=== PATIENT | male | born 1955 | race Two or more races ===

== ENCOUNTER 2023-09-23 12:10 | Inpatient (IN) | payer OTHER, MEDICAID ==
[~2023-09-23] VITALS: Ht 158 cm; Wt 58.1 kg
[2023-09-23 13:45] LABS: Basophils # (auto) 0 10 ^3/uL (0-0.2); Eosinophils # (auto) 0 10 ^3/uL (0-0.8); Eosinophils % (auto) 0.1 % (0.0-7.0); Monocytes # (auto) 0.5 10 ^3/uL (0-1.3)
[2023-09-23 13:49] LABS: Basophils % (auto) 0.2 % (0.0-2.0); Hematocrit 39.3 % (41.0-53.0); Lymphocytes # (auto) 1.2 10 ^3/uL (0.4-5.4); Mean Corpuscular Hemoglobin 32.3 pg (28.0-32.0); Mean Corpuscular Volume 97.7 fL (80.0-100.0); Monocytes % (auto) 5.1 % (0.0-12.0); Neutrophils # (auto) 7.7 10 ^3/uL (1.6-8.6); Neutrophils % (auto) 81.6 % (37.0-80.0); Red Blood Cells 4.02 10^6/uL (4.5-5.90); White Blood Cell 9.4 10^3/uL (4.4-10.8)
[2023-09-23 13:56] LABS: Chloride 94 mmol/L (98-107); Potassium 5.3 mmol/L (3.5-5.1); Sodium 124 mmol/L (136-145)
[2023-09-23 13:57] LABS: Anion Gap 7 (5-15); Carbon Dioxide 23 mmol/L (20-30)
[2023-09-23 14:02] LABS: BUN/Creatinine Ratio 13.3 (10.0-20.0); Blood Urea Nitrogen 21 mg/dL (9-23)
[2023-09-23 14:12] LABS: Glucose 744 mg/dL (74-106)
[2023-09-23 14:27] LABS: Urine Epithelial Cast None Seen /hpf (<5)
[2023-09-23 14:50] LABS: Urine Bacteria NONE SEEN /hpf (None Seen); Urine Blood TRACE /uL (Negative); Urine Clarity Clear (Clear); Urine Color Colorless (Yellow); Urine Protein, UAD 1+ (Negative); Urine Specific Gravity 1.024 (1.001-1.035); Urine Urobilinogen Normal (Negative); Urine WBC 1 /hpf (0 - 3)
[2023-09-23] MEDS ORDERED: SODIUM CHLORIDE 0.9% 1,000 ML IV ONE ×2 (15:00)
[2023-09-23] MEDS ORDERED: InsuLIN REG 1unit/0.01ml Soln (100units/ml) IV ONE (15:00)
[2023-09-23 15:20] LABS: Lactic Acid w/Reflex 2.8 mmol/L (0.4-2.0)
[2023-09-23] MEDS ORDERED: DOCUSATE SOD 100 MG CAP PO PRN (18:00)
[2023-09-23] MEDS ORDERED: DEXTROSE (50%) 50ML SYRG IV PRN (18:00)
[2023-09-23] MEDS ORDERED: ONDANSETRON HCL 4 MG/2 ML VIAL IV PRN (18:00)
[2023-09-23] MEDS ORDERED: MORPHINE SULFATE INJ 2 MG/ml SYRG IV PRN (18:00)
[2023-09-23] MEDS: ACCU-CHEK COMFORT CURVE STRIP VI SCH (20:00)
[2023-09-23] MEDS: InsuLIN REG 1unit/0.01ml Soln (100units/ml) SC SCH (20:00)
[2023-09-23 20:24] LABS: Creatinine, Urine 20.01 mg/dL (30.0-125.0)
[2023-09-24 01:29] VITALS: PULSE 79; RESP 14; O2SAT 97
[2023-09-24] MEDS: ACCU-CHEK COMFORT CURVE STRIP VI SCH ×6 (01:29→21:39)
[2023-09-24] MEDS: InsuLIN REG 1unit/0.01ml Soln (100units/ml) SC SCH ×6 (01:35→21:39)
[2023-09-24] MEDS: SODIUM CHLORIDE 0.9% 1,000 ML IV SCH ×4 (01:35→16:16)
[2023-09-24 04:53] LABS: Red Cell Distribution Width 12.7 % (11.8-14.3)
[2023-09-24 04:55] LABS: Basophils # (auto) 0 10 ^3/uL (0-0.2); Basophils % (auto) 0.6 % (0.0-2.0); Eosinophils # (auto) 0.1 10 ^3/uL (0-0.8); Eosinophils % (auto) 0.8 % (0.0-7.0); Hematocrit 33.6 % (41.0-53.0); Hemoglobin 11.5 g/dL (13.5-17.5); Lymphocytes # (auto) 2.4 10 ^3/uL (0.4-5.4); Lymphocytes % (auto) 31.3 % (10.0-50.0); Mean Corpuscular Hemoglobin 31.7 pg (28.0-32.0); Mean Corpuscular Hgb Conc. 34.3 g/dL (32.0-36.0); Mean Corpuscular Volume 92.3 fL (80.0-100.0); Monocytes # (auto) 0.6 10 ^3/uL (0-1.3); Monocytes % (auto) 7.4 % (0.0-12.0); Neutrophils # (auto) 4.7 10 ^3/uL (1.6-8.6); Neutrophils % (auto) 59.9 % (37.0-80.0); Red Blood Cells 3.64 10^6/uL (4.5-5.90); White Blood Cell 7.8 10^3/uL (4.4-10.8)
[2023-09-24 05:10] LABS: Alanine Aminotransferase 12 U/L (7-40); Alkaline Phosphatase 134 U/L (46-116); Anion Gap 6 (5-15); Aspartate Aminotransferase 13 U/L (13-40); Blood Urea Nitrogen 26 mg/dL (9-23); Calcium 9.1 mg/dL (8.5-10.1); Carbon Dioxide 23 mmol/L (20-30); Potassium 4.2 mmol/L (3.5-5.1); Sodium 136 mmol/L (136-145)
[2023-09-24 05:11] LABS: Albumin 3.5 g/dL (3.2-4.8); Bilirubin, Total 0.2 mg/dL (0.2-1.0); Total Protein 6.4 g/dL (5.7-8.2)
[2023-09-24 05:32] LABS: Chloride 107 mmol/L (98-107); Glucose 68 mg/dL (74-106)
[2023-09-24 07:45] VITALS: PULSE 84; RESP 22; O2SAT 98
[2023-09-24] MEDS: cefTRIAXone 1GM/50ML D5W 50 ML IV SCH (08:39)
[2023-09-24 09:55] VITALS: RESP 18
[2023-09-24 09:57] VITALS: BP 164/89; PULSE 77; RESP 12; TEMP 97.8; O2SAT 97
[2023-09-24] MEDS ORDERED: DEXTROSE (50%) 50ML SYRG IV PRN (13:00)
[2023-09-24 17:00] VITALS: BP 157/84; PULSE 88; RESP 18; TEMP 97.9; O2SAT 98
[2023-09-24 20:00] VITALS: PULSE 85; RESP 16; O2SAT 96
[2023-09-25] VITALS (7 sets, daily range): BP systolic 102–154; BP diastolic 72–90; PULSE 75–92; RESP 17–20; TEMP 97.5–98.3; O2SAT 95–100
[2023-09-25] MEDS: SODIUM CHLORIDE 0.9% 1,000 ML IV SCH ×3 (03:20→20:00)
[2023-09-25] MEDS: InsuLIN REG 1unit/0.01ml Soln (100units/ml) SC SCH ×4 (06:31→21:24)
[2023-09-25] MEDS: ACCU-CHEK COMFORT CURVE STRIP VI SCH ×4 (06:31→21:24)
[2023-09-25 07:02] LABS: Basophils # (auto) 0 10 ^3/uL (0-0.2); Basophils % (auto) 0.3 % (0.0-2.0); Eosinophils # (auto) 0.1 10 ^3/uL (0-0.8); Hemoglobin 12.2 g/dL (13.5-17.5); Lymphocytes # (auto) 2.2 10 ^3/uL (0.4-5.4); Monocytes # (auto) 0.7 10 ^3/uL (0-1.3)
[2023-09-25 07:04] LABS: Eosinophils % (auto) 0.8 % (0.0-7.0); Hematocrit 35.8 % (41.0-53.0); Lymphocytes % (auto) 30.1 % (10.0-50.0); Mean Corpuscular Hemoglobin 31.7 pg (28.0-32.0); Mean Corpuscular Volume 93.4 fL (80.0-100.0); Monocytes % (auto) 9.5 % (0.0-12.0); Neutrophils # (auto) 4.4 10 ^3/uL (1.6-8.6); Neutrophils % (auto) 59.3 % (37.0-80.0); Nucleated Red Blood Cells % 0.2 %; Red Blood Cells 3.84 10^6/uL (4.5-5.90); Red Cell Distribution Width 12.7 % (11.8-14.3); White Blood Cell 7.4 10^3/uL (4.4-10.8)
[2023-09-25 07:10] LABS: Chloride 104 mmol/L (98-107); Potassium 3.8 mmol/L (3.5-5.1); Sodium 136 mmol/L (136-145)
[2023-09-25 07:11] LABS: Anion Gap 7 (5-15); Carbon Dioxide 25 mmol/L (20-30)
[2023-09-25 07:12] LABS: Calcium 9.2 mg/dL (8.5-10.1)
[2023-09-25 07:16] LABS: BUN/Creatinine Ratio 15.2 (10.0-20.0); Blood Urea Nitrogen 16 mg/dL (9-23)
[2023-09-25 07:22] LABS: Glucose 214 mg/dL (74-106)
[2023-09-25] MEDS: cefTRIAXone 1GM/50ML D5W 50 ML IV SCH (08:14)
[2023-09-25] MEDS ORDERED: METF-372 PO (10:40)
[2023-09-25] MEDS ORDERED: AUG875T PO (10:40)
[2023-09-26] MEDS: SODIUM CHLORIDE 0.9% 1,000 ML IV SCH (04:20)
[2023-09-26 05:00] VITALS: BP 162/87; PULSE 85; RESP 20; TEMP 98; O2SAT 96
[2023-09-26] MEDS: ACCU-CHEK COMFORT CURVE STRIP VI SCH ×2 (06:02→12:29)
[2023-09-26] MEDS: InsuLIN REG 1unit/0.01ml Soln (100units/ml) SC SCH ×2 (06:02→12:31)
[2023-09-26 08:00] VITALS: PULSE 75; RESP 12; O2SAT 95
[2023-09-26 09:00] VITALS: BP 159/81; PULSE 75; RESP 12; TEMP 98.5; O2SAT 97
[2023-09-26] MEDS: cefTRIAXone 1GM/50ML D5W 50 ML IV SCH (09:27)
[2023-09-26] MEDS ORDERED: AMOX500T86 PO (12:48)
[2023-09-26] MEDS ORDERED: METF-490 PO (12:48)
[2023-09-26 13:00] VITALS: BP 142/72; PULSE 83; RESP 12; TEMP 97.9; O2SAT 95
[2023-09-26 14:00] VITALS: BP 142/72; PULSE 83; RESP 12; TEMP 97.9; O2SAT 95
== END 2023-09-26 15:17 | disposition home or self-care (01) | DRG 682 ==
LOC: ER 12:10 → OVERFLOW 18:16 → EAST 09-24 08:44
PROVIDERS: ADMIT Nurse Practitioner Family; ATTEND Nurse Practitioner Acute Care
DX: N17.0 Acute kidney failure with tubular necrosis (principal); E11.00 Type 2 diabetes mellitus with hyperosmolarity without nonketotic hyperglycemic-hyperosmolar coma (NKHHC); E87.20 Acidosis, unspecified; E87.1 Hypo-osmolality and hyponatremia; E86.0 Dehydration; E87.5 Hyperkalemia; J01.90 Acute sinusitis, unspecified; E78.5 Hyperlipidemia, unspecified; E11.319 Type 2 diabetes mellitus with unspecified diabetic retinopathy without macular edema; Z79.4 Long term (current) use of insulin
CPT/HCPCS: 36415; 70450; 70486; 70551; 80048; 80053; 81001; 82010; 82570; 82962; 83036; 83605; 83735; 83930; 83935; 84300; 84443; 84484; 85025; G0378; J1815; J2405